=== PATIENT | female | born 2005 | race African-American/Black ===

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

== ENCOUNTER 2024-12-04 08:46 | Emergency (ER) | payer OTHER, SELFPAY ==
[2024-12-04] MEDS ORDERED: guaiFENesin/Codeine 200 mg/20 mg 10 ml Cup PO SCH (09:30)
== END 2024-12-04 10:52 | disposition home or self-care (01) ==
LOC: ERS 08:46
DX: J06.9 Acute upper respiratory infection, unspecified (principal)
CPT/HCPCS: 87428; 93005; 99283